=== PATIENT | male | born 1985 | race Caucasian/White ===

== ENCOUNTER 2018-02-25 17:29 | Emergency (ER) | payer BC ==
[2018-02-25] MEDS ORDERED: Lidocaine 1% with EPINEPHrine 1:100,000 50 ML MDV INJECT STA (18:56)
[2018-02-25] MEDS ORDERED: Diphtheria,Pertussis(Acell),Tetanus Vaccine 0.5 ML SDV IM ONE (19:10)
--- NOTE | 2018-02-25 19:22 | EDM.PDOC ---
ED HPI GENERAL MEDICAL PROBLEM - General Chief Complaint: Laceration Stated Complaint: FISH HOOKS STUCK IN LEFT HAND TWO FINGERS Time Seen by Provider: 02/25/18 19:10 Source of Information: Reports: Patient, RN Notes Reviewed History Limitations: Reports: No Limitations - History of Present Illness INITIAL COMMENTS - FREE TEXT/NARRATIVE: Chief complaint fishhook injury History of present illness 32-year-old male had 2 fingers entailed on double fishhooks about 4 hours ago. Tetanus status not up-to-date No other injuries or concerns Unable to remove the fishhooks on his own. - Related Data Allergies Allergy/AdvReac Type Severity Reaction Status Date / Time No Known Allergies Allergy Verified 02/25/18 19:01 Home Meds: Home Meds NK [No Known Home Meds] 02/25/18 [History] Past Medical History - Past Health History Medical/Surgical History: Denies Medical/Surgical History Social & Family History - Tobacco Use Smoking Status *Q: Never Smoker - Caffeine Use Caffeine Use: Reports: Soda - Recreational Drug Use Recreational Drug Use: No ED ROS GENERAL - Review of Systems Review Of Systems: ROS reveals no pertinent complaints other than HPI. Skin: Reports: Other (fishhook stuck in each of the left middle and index fingers) ED EXAM, SKIN/RASH Exam: See Below Exam Limited By: No Limitations General Appearance: Alert, No Apparent Distress, Other (appears healthy, blood pressure is elevated but other vital signs normal) Respiratory/Chest: No Respiratory Distress, No Accessory Muscle Use Extremities: Other (fishhook stuck in the distal phalanxof both the left long finger and left middle finger volar aspect) Neurological: Alert, Oriented, No Motor/Sensory Deficits Psychiatric: Normal Mood Skin: Warm, Normal Color, Other (no signs of infection) ED SKIN PROCEDURES - Foreign Body Removal Consent Obtained:: Patient Performing Doctor:: Giorgi Toro Foreign Body Other Location Comment:: tip of the volar aspect of the left middle and left index finger Anesthesia Type: Local (1% lidocaine with epinephrine2 mL total) Findings:: hoax removed withneedle over agueda technique without difficulty Complications:: No Comments:: tolerated well, dressing applied by nurse Course - Vital Signs Last Recorded V/S: Last Vital Signs Temp 35.9 C 02/25/18 19:06 Pulse 85 02/25/18 19:06 Resp 18 02/25/18 19:06 BP 173/97 H 02/25/18 19:06 Pulse Ox 98 02/25/18 19:06 - Orders/Labs/Meds Orders: Active Orders 24 hr Category Date Time Status Vaccines to be Administered [RC] PER UNIT ROUTINE Care 02/25/18 19:10 Active Meds: Medications Discontinued Medications Generic Name Dose Route Start Last Admin Trade Name Iván PRN Reason Stop Dose Admin Bacitracin 1 dose 02/25/18 19:26 02/25/18 19:37 Bacitracin Oint 1 Gm TOP 02/25/18 19:27 1 dose ONETIME ONE Administration Diphtheria/Tetanus/Acell Pertussis 0.5 ml 02/25/18 19:10 02/25/18 19:30 Adacel IM 02/25/18 19:11 0.5 ml .ONCE ONE Administration Lidocaine/Epinephrine 10 ml 02/25/18 18:56 02/25/18 19:06 Xylocaine 1% With Epinephrine 1:100,000 INJECT 02/25/18 18:57 10 ml ONETIME STA Administration - Re-Assessments/Exams Free Text/Narrative Re-Assessment/Exam: 02/25/18 19:27 42-year-old male with fishhook embedded 2 fingers of his left hand See procedure note for fishhook removal Tetanus diphtheria activated pertussis booster 0.5 mL IM Bacitracin and dressing applied by nurses to the puncture wound sites. Departure - Departure Time of Disposition: 20:12 Disposition: Home, Self-Care 01 Condition: Good Clinical Impression: [place] injury to finger Qualifiers: Encounter type: initial encounter Laterality: left Qualified Code(s): S69.92XA - Unspecified injury of left wrist, hand and finger(s), initial encounter - Discharge Information Instructions: Puncture Wound, [id number] Referrals: PCP,None [Primary Care Provider] - Forms: ED Department Discharge Additional Instructions: Get rechecked if signs of infection occur such as increased pain, increased swelling, redness especially red streaks going up the arm, or cloudy or foul discharge from the wound. bathe as usual - My Orders Last 24 Hours: My Active Orders 02/25/18 19:10 Vaccines to be Administered [RC] PER UNIT ROUTINE - Assessment/Plan Last 24 Hours: My Active Orders 02/25/18 19:10 Vaccines to be Administered [RC] PER UNIT ROUTINE
[2018-02-25] MEDS ORDERED: Bacitracin Oint 1 GM U/D Packet TOP ONE (19:26)
== END 2018-02-25 19:50 | disposition home or self-care (01) ==
LOC: JP.ED 17:29
DX: S60.453A Superficial foreign body of left middle finger, initial encounter (principal); S60.451A Superficial foreign body of left index finger, initial encounter; W45.8XXA Other foreign body or object entering through skin, initial encounter; Z23 Encounter for immunization
CPT/HCPCS: 90471; 90715; 99283-25